=== PATIENT | male | born 1980 | race Caucasian/White ===

== ENCOUNTER 2021-08-23 16:58 | Emergency (ER) | payer SELFPAY ==
[~2021-08-23] VITALS: Ht 170.2 cm; Wt 72.6 kg
[2021-08-23] MEDS ORDERED: FENTANYL CITRATE/PF 100MCG/2 ML INJ IJ STA (17:14)
[2021-08-23] MEDS ORDERED: Cefazolin 1 GM in SODIUM CHLORIDE 0.9% 50ML 50 ML IV ONE (17:15)
[2021-08-23] MEDS ORDERED: ONDANSETRON HCL INJ 2MG/ML 2ML 2 MG/ML VIAL IV STA (18:33)
[2021-08-23] MEDS ORDERED: Morphine 4mg Syringe 4 MG/ML INJ IV ONE (18:45)
[2021-08-23 18:49] VITALS: BP 180/118
== END 2021-08-23 18:52 | disposition other institution (70) ==
LOC: ER 17:10
DX: S68.120A Partial traumatic metacarpophalangeal amputation of right index finger, initial encounter (principal); W27.0XXA Contact with workbench tool, initial encounter; Y92.008 Other place in unspecified non-institutional (private) residence as the place of occurrence of the external cause; F31.9 Bipolar disorder, unspecified; F41.9 Anxiety disorder, unspecified
CPT/HCPCS: 73130; 99284; J0690; J2270; J2405; J3010